=== PATIENT | male | born 1960 ===

== ENCOUNTER 2023-05-04 23:54 | Emergency (ER) | payer OTHER ==
[~2023-05-04] VITALS: Ht 172.7 cm; Wt 70.0 kg
[2023-05-04 23:57] VITALS: BP 137/83; PULSE 74; RESP 18; TEMP 98.3
== END 2023-05-05 01:15 | disposition home or self-care (01) ==
LOC: EMS 23:58
DX: S63.501A Unspecified sprain of right wrist, initial encounter (principal); S60.211A Contusion of right wrist, initial encounter; I10 Essential (primary) hypertension; F17.210 Nicotine dependence, cigarettes, uncomplicated; F12.90 Cannabis use, unspecified, uncomplicated; Z98.890 Other specified postprocedural states; X58.XXXA Exposure to other specified factors, initial encounter; Y93.I9 Activity, other involving external motion; Y92.89 Other specified places as the place of occurrence of the external cause; Y99.8 Other external cause status
CPT/HCPCS: 99283